=== PATIENT | male | born 1990 | race African-American/Black ===

== ENCOUNTER 2024-08-31 06:47 | Outpatient (REF) | payer SELFPAY ==
--- NOTE | ~2024-08-31 | US_ITS ---
CLINICAL HISTORY: HTN, CKD, R O POLYCYSTIC KIDNEY DZ US Renal Comparison: None provided Findings: Right kidney is 11 x 3.6 x 5.3 cm. Left kidney is 11.4 x 6.4 x 5.5 cm. No collecting system dilatation of either kidney. No cysts or masses within the kidneys. No hydronephrosis or nephrolithiasis. Normal color Doppler. Urinary bladder is fully distended on prevoid images. Prevoid urinary bladder measures 494 mL. Postvoid urinary bladder measures 80 mL. No significant postvoid residual urine within the bladder. Bilateral ureteral jets are visualized. Prostate measures 30 mL in volume. IMPRESSION: Unremarkable ultrasound of both kidneys and the urinary bladder. Specifically, No renal cysts or masses. This document has been electronically signed by: Charles Bates DO on 09/01/2024 11:10:01
== END 2024-08-31 06:48 | disposition home or self-care (01) ==
LOC: HO.UMASIMG 06:47
PROVIDERS: Visit Provider Nurse Practitioner Family
DX: I12.9 Hypertensive chronic kidney disease with stage 1 through stage 4 chronic kidney disease, or unspecified chronic kidney disease (principal); N18.2 Chronic kidney disease, stage 2 (mild)
CPT/HCPCS: 76770

== ENCOUNTER → 2024-08-31 09:30 | Outpatient (BNV) | payer OTHER, SELFPAY | PROVIDERS: Visit Provider Family Medicine | DX: I12.9 Hypertensive chronic kidney disease with stage 1 through stage 4 chronic kidney disease, or unspecified chronic kidney disease (principal); N18.9 Chronic kidney disease, unspecified; Q61.2 Polycystic kidney, adult type | CPT/HCPCS: 76770 ==